=== PATIENT | male | born 1960 | race Caucasian/White ===

== ENCOUNTER 2017-01-19 11:30 | Emergency (ER) | payer OTHER | END 2017-01-19 15:48 | disposition home or self-care (01) | LOC: ER1 11:30 | DX: S71.112A Laceration without foreign body, left thigh, initial encounter (principal); I10 Essential (primary) hypertension; S80.812A Abrasion, left lower leg, initial encounter; S80.811A Abrasion, right lower leg, initial encounter; S00.12XA Contusion of left eyelid and periocular area, initial encounter; K21.9 Gastro-esophageal reflux disease without esophagitis; W31.89XA Contact with other specified machinery, initial encounter; F17.210 Nicotine dependence, cigarettes, uncomplicated; Y93.H2 Activity, gardening and landscaping | CPT/HCPCS: 12002; 73564; 73590; 99283 ==

== ENCOUNTER 2021-01-25 16:04 | Emergency (ER) | payer OTHER ==
[~2021-01-25 16:04] MED LIST: ASPIR 8181 MG PO; ATORVASTATIN CA20 MG PO; CARVEDILOL3.125 MG PO; CATAPRES 0.1MG0.1 MG PO; ELIQUIS5 MG PO; HYDROCHLOROTHIA25 MG PO; K-DUR TAB 20 M20 MEQ PO; LISINOPRIL40 MG PO; NEXIUM40 MG PO
[2021-01-25 16:50] LABS: HEMOGLOBIN 14.1 gm/dl (14.0-17.5); RED BLOOD COUNT 4.37 M/UL (4.20-5.50); WHITE BLOOD COUNT 9.2 K/UL (4.5-11.0)
[2021-01-26 02:47] LABS: BUN/CREATININE RATIO 17 (0-10)
[2021-01-26] MEDS ORDERED: SLOW-MAG71.5 MG PO (03:30)
== END 2021-01-26 05:09 | disposition home or self-care (01) ==
LOC: ER1 16:04
PROVIDERS: Emergency Medicine
DX: E87.6 Hypokalemia (principal); E83.42 Hypomagnesemia; R77.8 Other specified abnormalities of plasma proteins; N17.9 Acute kidney failure, unspecified; R20.2 Paresthesia of skin; I48.91 Unspecified atrial fibrillation; Z20.822 Contact with and (suspected) exposure to COVID-19; I10 Essential (primary) hypertension; F17.210 Nicotine dependence, cigarettes, uncomplicated
CPT/HCPCS: 0240U; 36415; 36600; 71045; 80048; 80053; 82550; 82553; 82803; 83735; 83874; 83880; 84484; 85025; 85379; 93005; 94760; 96365; 96366; 96375; 99284; J0610; J3475; Q9967

== ENCOUNTER 2022-03-26 14:22 | Emergency (ER) | payer OTHER ==
[~2022-03-26 14:22] MED LIST changes: +SLOW-MAG71.5 MG PO
[2022-03-26 15:17] LABS: HEMOGLOBIN 13.4 gm/dl (14.0-17.5); RED BLOOD COUNT 4.13 M/UL (4.20-5.50); WHITE BLOOD COUNT 8.6 K/UL (4.5-11.0)
== END 2022-03-26 19:35 | disposition home or self-care (01) ==
LOC: ER1 14:22
PROVIDERS: Family Medicine
DX: E83.51 Hypocalcemia (principal); E83.42 Hypomagnesemia
CPT/HCPCS: 80053; 82550; 82553; 83735; 83970; 84484; 85025; 93005; 96365; 99283; J3475